=== PATIENT | female | born 1940 | race American Indian/Alaskan Native ===

== ENCOUNTER 2017-06-03 11:41 | Emergency (ER) | payer MEDICARE ==
[2017-06-03 11:47] VITALS: BMI 27.8
[2017-06-03 11:48] VITALS: O2SAT 98
[2017-06-03] MEDS ORDERED: Lidocaine 1% Inj (20ml) ONE (12:23)
--- NOTE | 2017-06-03 12:48 | ED PDOC ---
HPI: Trauma/Fall - HPI Time Seen by Provider: 06/03/17 12:13 Chief Complaint (Nursing): Abnormal Skin Integrity Chief Complaint (Provider): L ear swelling History Per: Family History/Exam Limitations: other (Alzheimer's disease) Additional Complaint(s): Pt presents with niece who states pt fell 2 days ago and hit L ear. Pt with h/ o Alzheimer's disease and niece states she is more aggressive than usual. Denies difficulty ambulating or speaking. Past Medical History Reviewed: Nursing Documentation, Vital Signs Vital Signs: Last Vital Signs Temp 98.6 F 06/03/17 16:01 Pulse 76 06/03/17 16:01 Resp 20 06/03/17 16:01 BP 120/70 06/03/17 16:01 Pulse Ox 98 06/03/17 16:01 - Medical History PMH: Alzheimer's Disease, HTN - Family History Family History: States: Unknown Family Hx - Living Arrangements Living Arrangements: With Family - Social History Current smoker - smoking cessation education provided: No Alcohol: None - Allergies Allergies/Adverse Reactions: Allergies Allergy/AdvReac Type Severity Reaction Status Date / Time No Known Allergies Allergy Verified 06/03/17 11:57 Review of Systems Review Of Systems: ROS cannot be obtained secondary to pt's inabilty to answer questions. Physical Exam - Reviewed Nursing Documentation Reviewed: Yes Vital Signs Reviewed: Yes - Physical Exam Appears: Positive for: Well, No Acute Distress Head Exam: Positive for: ATRAUMATIC, NORMAL INSPECTION Skin: Positive for: Normal Color, Warm, Dry Eye Exam: Positive for: Normal appearance, EOMI, PERRL ENT: Positive for: Other (L EAR: + Auricular hematoma) Neck: Positive for: Normal, Painless ROM, Supple Cardiovascular/Chest: Positive for: Regular Rate, Rhythm Respiratory: Positive for: Normal Breath Sounds. Negative for: Rales, Rhonchi, Wheezing Gastrointestinal/Abdominal: Positive for: Normal Exam, Bowel Sounds, Soft. Negative for: Tenderness Back: Positive for: Normal Inspection. 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 Negative for : Aphasia, Facial Droop - Laboratory Results Result Diagrams: 06/03/17 14:03 06/03/17 14:03 - ECG O2 Sat by Pulse Oximetry: 98 - Physician Consult Information Time Consulting Physican Contacted: 12:20 Physician Contacted: Jhony Harvey Outcome Of Conversation: Recommends needle aspiration and follow-up in office in 1-2 days. Medical Decision Making Medical Decision Makin yo with L auricular hematoma s/p head injury. - labs - EKG - CT head - ENT consult Accession No. 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 HISTORY: Head injury. COMPARISON: Comparison made with prior MRI of brain dated 03/21/2017. TECHNIQUE: Axial computed tomography images were obtained through the head/brain without intravenous contrast. Radiation dose: Total exam DLP = 829.67 mGy-cm. This CT exam was performed using one or more of the following dose reduction techniques: Automated exposure control, adjustment of the mA and/or kV according to patient size, and/or use of iterative reconstruction technique. FINDINGS: HEMORRHAGE: No acute parenchymal, subarachnoid nor extra-axial hemorrhage. BRAIN: Mild diffuse/ confluent chronic periventricular white matter ischemic changes are again seen though less well visualized on this study as compared to high- resolution MRI. Minor left and possibly few right also basal nuclei ischemic changes also less well seen compared to prior MRI. . Moderate central volume loss evidenced by disproportion enlargement of the ventricles as compared sulci. Minor partially calcified atherosclerotic plaque change both carotid siphons. VENTRICLES: No obstructive hydrocephalus. CALVARIUM: Calvarium is intact. . Minor hyperostosis frontalis interna. PARANASAL SINUSES: Re- demonstrated are mild mucosal thickening changes within the left chamber sphenoid sinus and left ethmoid air complex. The maxillary antra is incompletely visualized. Please refer to prior CT scan MRI report for additional details regarding inflammatory changes in the left maxillary sinus. . MASTOID AIR CELLS: Mastoid air complexes well-developed and currently well-aerated. OTHER FINDINGS: None. IMPRESSION: No acute intracranial hemorrhage. Mild chronic periventricular white matter and basal nuclei ischemic changes as described. Moderate central volume loss. Niece requesting Social Work consult. Call placed to Eva, states no one can come down to talk to family member. Pt remained calm and cooperative during ED observation. Procedures - Incision and Drainage Site: L ear Blade Size: 18 gauge needle I & D Procedure: sterile dressing applied Progress: 1 cm Lidocaine 1% infiltrated in to L auricle, 18 gauge needle used for aspiration, 8 cc blood aspirated, compression dressing applied. Pt tolerated procedure well. Disposition - Clinical Impression Clinical Impression: Hematoma of auricle, Head injury - Disposition Referrals: Jhony Harvey MD [Staff Provider] - Disposition: Routine/Home Disposition Time: 15:12 Condition: STABLE Additional Instructions: FOLLOW-UP WITH DR. HARVEY WITHIN 2 DAYS WITHOUT FAIL FOR REEVALUATION. Instructions: Closed Head Injury, Contusion (DC) Forms: [employer] (Indian)
--- NOTE | 2017-06-03 13:28 | CT ---
PROCEDURE: CT HEAD WITHOUT CONTRAST. HISTORY: Head injury. COMPARISON: Comparison made with prior MRI of brain dated 03/21/2017. TECHNIQUE: Axial computed tomography images were obtained through the head/brain without intravenous contrast. Radiation dose: Total exam DLP = 829.67 mGy-cm. This CT exam was performed using one or more of the following dose reduction techniques: Automated exposure control, adjustment of the mA and/or kV according to patient size, and/or use of iterative reconstruction technique. FINDINGS: HEMORRHAGE: No acute parenchymal, subarachnoid nor extra-axial hemorrhage. BRAIN: Mild diffuse/ confluent chronic periventricular white matter ischemic changes are again seen though less well visualized on this study as compared to high-resolution MRI. Minor left and possibly few right also basal nuclei ischemic changes also less well seen compared to prior MRI. . Moderate central volume loss evidenced by disproportion enlargement of the ventricles as compared sulci. Minor partially calcified atherosclerotic plaque change both carotid siphons. VENTRICLES: No obstructive hydrocephalus. CALVARIUM: Calvarium is intact. . Minor hyperostosis frontalis interna. PARANASAL SINUSES: Re- demonstrated are mild mucosal thickening changes within the left chamber sphenoid sinus and left ethmoid air complex. The maxillary antra is incompletely visualized. Please refer to prior CT scan MRI report for additional details regarding inflammatory changes in the left maxillary sinus. . MASTOID AIR CELLS: Mastoid air complexes well-developed and currently well-aerated. OTHER FINDINGS: None. IMPRESSION: No acute intracranial hemorrhage. Mild chronic periventricular white matter and basal nuclei ischemic changes as described. Moderate central volume loss.
[2017-06-03 14:10] LABS: BASO % 0.7 % (0.0-2.0); EOS # 0.9 K/uL (0.0-0.7); EOS % 13.9 % (0.0-4.0); HEMOGLOBIN 12.7 g/dL (12.0-16.0); LYMPH # 1.6 K/uL (1.0-4.3); LYMPH % 25.4 % (20.0-40.0); MEAN CELL VOLUME 90.5 fl (81.0-99.0); MEAN CORPUSCULAR HGB CONC 33.1 g/dL (33.0-37.0); MEAN PLATELET VOLUME 9.8 fl (7.2-11.7); MONO # 0.4 K/uL (0.0-0.8); NEUT # 3.3 K/uL (1.8-7.0); NRBC % 0.2 % (0.0-0.0); RBC 4.23 Mil/uL (3.80-5.20); RED CELL DISTRIBUTION WIDTH 14.9 % (11.5-14.5); WHITE BLOOD COUNT 6.3 K/uL (4.8-10.8)
[2017-06-03 14:19] LABS: ALB/GLOB RATIO 1.1 (1.0-2.1); ALBUMIN 3.9 g/dL (3.5-5.0); CALCIUM 9.2 mg/dL (8.4-10.2); GFR AFRICAN-AMERICAN > 60; GFR NON-AFRICAN AMERICAN > 60
[2017-06-03 14:20] LABS: ALT/SGPT 25 U/L (9-52); AST/SGOT 28 U/L (14-36); BLOOD UREA NITROGEN 11 mg/dl (7-17)
[2017-06-03 16:01] VITALS: BP 120/70; PULSE 76; RESP 20
[2017-06-03 16:03] VITALS: TEMP 98.6
== END 2017-06-03 16:05 | disposition home or self-care (01) ==
LOC: H.ER 11:41
DX: S09.90XA Unspecified injury of head, initial encounter (principal); S00.439A Contusion of unspecified ear, initial encounter; W19.XXXA Unspecified fall, initial encounter; Y92.89 Other specified places as the place of occurrence of the external cause; F02.80 Dementia in other diseases classified elsewhere, unspecified severity, without behavioral disturbance, psychotic disturbance, mood disturbance, and anxiety; G30.9 Alzheimer's disease, unspecified; I10 Essential (primary) hypertension